=== PATIENT | female | born 1955 | race African-American/Black ===

== ENCOUNTER 2016-05-16 04:12 | Inpatient (IN) | payer OTHER ==
--- NOTE | ~2016-05-16 | ST ---
Unit #: [id number] #: [id number] Patient: NIGHAT NULL [id number] [facility]. [place] [address] [facility]. [place], [place] [address] [id number] I MR#: [id number] NAME: NIGHAT NULL : 1955 SEX: F STUDY DATE/TIME: 05/18/2016 UNIT: C3A PCU ROOM: [facility] STUDY DESCRIPTION: Lexiscan stress test Attending Physician: Edy Avendano M.D. Primary Care Physician: No Primary Care Physician CARDIOLOGY REPORT PROCEDURE PERFORMED EKG portion of a Lexiscan Cardiolite stress test. DISCUSSION Baseline EKG reveals sinus rhythm with a ventricular rate of 93 beats per minute. Right atrial enlargement noted. T wave inversion noted in the anterolateral leads questionably due to LV strain. Incomplete right bundle branch block noted. A total of 0.4 mg of Lexiscan was injected per protocol, followed by Cardiolite. There were no complaints of chest pain. There were no sustained arrhythmias noted, except there were some rare PVCs. There were no ST or T wave changes to suggest ischemia from baseline. The maximal heart rate was 126 beats per minute with a maximal blood pressure of 145/68 mmHg. The test was stopped due to protocol completion. IMPRESSION 1. Negative EKG portion of Lexiscan Cardiolite stress test. 2. There were no complaints of chest pain. 3. There were rare premature ventricular complexes noted. 4. There were no ST or T wave changes from baseline to suggest ischemia. 5. Please correlate with Cardiolite images. Dictated by... Carissa Mahoney APRN for Linnea Quintero/bryant TD: 05/18/2016 16:10 JOB #: [id number] CARDIOLOGY REPORT Page 1 of 1 X CARDIOLOGY REPORT
--- NOTE | ~2016-05-16 | CT16 ---
[facility] A Service of [place] [facility] RADIOLOGY TEXT RESULTS PATIENT: NIGHAT NULL LOCATION: [facility] 317-01 : [birth year] UNIT #: [id number] AGE: [address]: Edy Avendano MD SEX: F ORDER DR: [id number] [facility] [address] [facility]. [place], [place] [address] [id number] I MR#: [id number] Acc #: [id number] NAME: NIGHAT NULL : 1955 SEX: F STUDY DATE/TIME: 05/16/2016 17:32 UNIT: A [facility] ROOM: [facility] STUDY DESCRIPTION: CT Angio Chest for PE Attending Physician: Edy Avendano M.D. Ordering Physician: David Otto M.D. Primary Care Physician: Primary Care Physician No MEDICAL IMAGING REPORT This report is preliminary unless electronic signature is present EXAM CT angiogram chest with IV contrast, 05/16/2016 HISTORY Shortness of air for [address] exam was performed with one or more of the following radiation dose reduction techniques: automatic exposure control, adjustment of mA and/or kV according to patient size, and iterative reconstruction. FINDINGS IV contrast enhanced CT angiogram of the chest was performed with 3-D reconstructions. There is no evidence of pulmonary embolus. Exam sensitivity is partly limited by respiratory motion artifact. Moderately extensive atelectasis in the right middle lobe and mild atelectasis in the inferior lingula. Additional mild linear atelectasis in both posterior lower lobes. Mild emphysema in the upper lobes. There is a 6.0 mm pulmonary nodule in the lateral right lung apex. Unless there are older outside CTs documenting long-term stability, followup CT chest in 6-12 months would be recommended. Small pericardial effusion. No adenopathy. 2.6 cm lipoma in the left subscapularis muscle is incidentally noted. IMPRESSION 1. No pulmonary mass. 2. Moderate atelectasis in the right middle lobe and mild atelectasis in the inferior lingula and additional mild linear atelectasis in the inferior lower lobes. 3. No airspace infiltrates or effusions. 4. Mild emphysema in the bilateral upper lobes. 5. 6.0 mm pulmonary nodule in the lateral right upper lobe. Unless STS. [facility] A Service of [facility] RADIOLOGY TEXT RESULTS PATIENT: NIGHAT NULL LOCATION: [facility] 317-01 : [birth year] UNIT #: [id number] AGE: [address]: Edy Avendano MD SEX: F ORDER DR: there are older outside CTs to document long-term stability, followup chest CT in 6-12 months would be recommended. 6. 2.6 cm incidental lipoma in the left subscapularis muscle. STAT * RESULT Dictated by... Richardson Marley M.D. THIS IS AN ELECTRONICALLY VERIFIED REPORT Richardson Marley M.D. at 05/17/2016 12:23 PM Mirna TD: 05/17/2016 10:27 JOB #: [id number] MEDICAL IMAGING REPORT COPY
--- NOTE | ~2016-05-16 | DS ---
Unit #: [id number] #: [id number] Patient: NIGHAT NULL [id number] [address] [place], [place] [address] [id number] I MR#: [id number] NAME: NIGHAT NULL ROOM: 317 Age: 60 Sex: F Admission Date: 05/16/2016 : 1955 Discharge Date: 05/18/2016 Attending Physician: Edy Avendano M.D. Primary Care Physician: No Primary Care Physician DISCHARGE SUMMARY [employer] Dr. Madiha Puente. PROCEDURES 1. A 2D echocardiogram with Doppler which showed an ejection fraction of 55% to 60%, normal wall motion, moderate concentric LV hypertrophy, LV size normal, impaired relaxation, grade 1 diastolic dysfunction, moderately enlarged right ventricular cavity with moderately reduced RV function, moderate tricuspid regurgitation, RV systolic pressure of approximately 57 mmHg. 2. Cardiolite stress test which was essentially normal. 3. Ultrasound of the lower extremities for deep venous thrombosis: Negative. 4. Ultrasound of the abdomen for ascites which did not show any drainable fluid. HISTORY OF PRESENT ILLNESS The patient is a 60-year-old -[place] lady with a past medical history of hypertension, who presented to the emergency room with a chief complaint of bilateral lower extremity edema. She complains of about 100 pounds weight gain in the last one year. HOSPITAL COURSE On the initial evaluation, she was noted to have edema of lower extremities and she was started on diuretics. Ultrasound of the lower extremities was negative for DVT. Cardiology was consulted. We did check a lipid panel. The LDL came back 77. Her hemoglobin A1c was 6.2. We started her on Lipitor for hyperlipidemia. I did explain to her about the possible side effects of Lipitor including rhabdomyolysis and elevated bilirubin. She understands and agreed to be on that. Cardiology was following the patient. They titrated her cardiac medications including starting her on beta ed, diuretics. Slowly, her edema is improving. She had a Cardiolite stress test done which was negative. We counseled her on every hospitalization visit to quit smoking. She will be discharged home in a stable condition. Requested her to follow with dermatology for a skin rash she had on her left upper extremity. She has an appointment on the of this month for that. I requested her to follow with cardiology in one to two weeks. I requested her to take low-salt diet and monitor her fluid intake, restrict her fluids to 1800 mL per day. All the discharge instructions explained in detail to the patient. PHYSICAL EXAMINATION On the day of the discharge, her physical examination: Unit #: [id number] #: [id number] Patient: NIGHAT NULL VITAL SIGNS: Temperature 98.9, pulse rate 95, respiratory rate 20, blood pressure 142/84. GENERAL: The patient is alert and oriented x3, lying in the bed in no acute distress. HEENT: Normocephalic and atraumatic. No icterus. PERRLA. Extraocular muscles intact. NECK: Supple. No JVD. HEART: S1, S2. Regular rate and rhythm. CHEST: Bilateral equal air entry. Clear to auscultation. ABDOMEN: Soft, nontender. EXTREMITIES: Mild edema present. DISCHARGE MEDICATIONS 1. Metoprolol 25 mg twice a day. 2. Lasix 40 mg p.o. twice a day. 3. Lipitor 20 mg at bedtime. 4. Cozaar 25 mg daily. 5. Aspirin 81 mg daily. 6. Spironolactone 12.5 mg daily. FOLLOWUP She is instructed to follow with cardiology, primary care, and dermatology as an outpatient. Total time spent in her care, 35 minutes. Dictated by.Bob Avendano M.D. Eliana TD: 05/18/2016 17:42 JOB #: [id number] DISCHARGE SUMMARY Page 1 of 1 X X DISCHARGE SUMMARY
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
--- NOTE | ~2016-05-16 | US8 ---
[facility] A Service of [facility] RADIOLOGY TEXT RESULTS PATIENT: NIGHAT NULL LOCATION: [facility] 317- : 53 UNIT #: [id number] AGE: [address]: Edy Avendano MD SEX: F ORDER DR: [id number] [facility] [address] [facility]. [place], [place] [address] [id number] I MR#: [id number] #: [id number] NAME: NIGHAT NULL : 1955 SEX: F STUDY DATE/TIME: 05/18/2016 9:49 UNIT: [address] ROOM: [facility] STUDY DESCRIPTION: US Abdominal Wall/Quadrant Attending Physician: Edy Avendano M.D. Ordering Physician: Dominic Britt M.D. Primary Care Physician: Primary Care Physician No MEDICAL IMAGING REPORT This report is preliminary unless electronic signature is present EXAM Wall quadrant ultrasound, 05/18/2016 INDICATIONS Abdominal discomfort and fullness for a few months. Assessment of ascites in a 60-year-old female. TECHNIQUE Sonographic imaging of the abdomen was performed with a wall quadrant approach to assess for the presence or absence of ascites. No comparisons. FINDINGS Examination demonstrates no ascites amenable to percutaneous drainage or aspiration at this time. Incidentally imaged solid organs negative. IMPRESSION 1. No ascites amenable to percutaneous aspiration. Dictated by... Faisal Torres M.D. THIS IS AN ELECTRONICALLY VERIFIED REPORT Faisal Torres M.D. at 05/19/2016 7:34 AM ABHIJIT/sandra TD: 05/18/2016 22:50 JOB #: [id number] MEDICAL IMAGING REPORT Page 1 of 1 COPY
--- NOTE | ~2016-05-16 | ST ---
Unit #: [id number] #: [id number] Patient: NIGHAT NULL [id number] [address] [address] [id number] I MR#: [id number] NAME: NIGHAT NULL : 1955 SEX: F STUDY DATE/TIME: 05/18/2016 UNIT: C3A PCU ROOM: [address] [place] [address] DESCRIPTION: Stress tests Attending Physician: Edy Avendano M.D. STRESS TEST DESCRIPTION OF PROCEDURE Using Technetium-99m label Cardiolite Persantine stress test images were obtained. Multiple SPECT images were obtained in various views including horizontal and vertical long axis and short axis views of the left ventricle. Images were obtained by gait SPECT method. The patient was administered 11.86 mCi of Cardiolite at rest. The patient was administered 35.9 mCi of Cardiolite after Lexiscan infusion was completed. On the stress images, there was normal perfusion noted. The rest images showed normal perfusion. Comparing resting of stress images, there was no stress-induced ischemia noted. The left ventricular ejection fraction is calculated to be 51%. There was no focal wall motion abnormality seen. The left ventricular size is small. CONCLUSION 1. No obvious stress-induced ischemia noted. 2. The left ventricular ejection fraction is calculated to be 51%. 3. There was no focal wall motion abnormality seen. 4. The left ventricular size is small. 5. Normal Lexiscan Cardiolite stress test. 6. Technically limited study due to the patient's body habitus. Clinical correlation is requested. Dictated by... Linnea Quintero/cris TD: 05/19/2016 10:52 JOB #: [id number] STRESS TEST Page 1 of 1 X Madiha Puente MD <ELECTRONICALLY SIGNED> 09/18/16 1429 CARDIOLOGY REPORT
--- NOTE | ~2016-05-16 | EKG ---
PATIENT: NIGHAT NULL UNIT #: [id number] Ventricular Rate: 101 BPM Atrial Rate: 101 BPM P-R Interval: 124 ms QRS Duration: 114 ms Q-T Interval: 390 ms QTC Calculation(Bezet): 505 ms P [place]: 71 degrees Calculated R [place]: 76 degrees Calculated T [place]: -39 degrees Diagnosis Line: Sinus tachycardia Diagnosis Line: Biatrial enlargement Diagnosis Line: Incomplete right bundle branch block Diagnosis Line: ST and T wave abnormality, consider inferior Diagnosis Line: ischemia Diagnosis Line: Abnormal ECG Diagnosis Line: When compared with ECG of 06-JAN-2013 03:29, Diagnosis Line: Criteria for Inferior infarct are no longer Diagnosis Line: Present Diagnosis Line: Non-specific change in ST segment in Inferior Diagnosis Line: leads Diagnosis Line: T wave inversion now evident in Inferior leads Diagnosis Line: T wave inversion more evident in Anterolateral Diagnosis Line: leads Diagnosis Line: Confirmed by DANIELA BLUM MD ([id number]) on Diagnosis Line: 05/16/2016 8:03:07 PM INTERPRETING MD: JAMIE
--- NOTE | ~2016-05-16 | US84 ---
[id number] [facility] [address] [facility]. [place], [place] [address] [id number] I MR#: [id number] Acc #: [id number] NAME: NIGHAT NULL : 1955 SEX: F STUDY DATE/TIME: 05/17/2016 14:39 UNIT: C3A PCU ROOM: 317 STUDY DESCRIPTION: US LE Veins Complete Clayton Stdy Attending Physician: Edy Avendano M.D. Ordering Physician: Edy Avendano M.D. Primary Care Physician: Primary Care Physician No MEDICAL IMAGING REPORT This report is preliminary unless electronic signature is present EXAM Bilateral leg vein Doppler, 05/17 INDICATIONS Bilateral leg swelling over the last 2 months. TECHNIQUE Venous ultrasound examination of both lower extremities was performed using grayscale, spectral Doppler and color flow Doppler imaging. FINDINGS The examination is negative. There is no evidence of deep venous thrombus from the groin to the lower calf bilaterally. Visualized greater saphenous veins are also patent. IMPRESSION Negative examination. No evidence of lower extremity deep venous thrombosis. Dictated by... Joel Jacques Jr., M.D. THIS IS AN ELECTRONICALLY VERIFIED REPORT Joel Jacques Jr., M.D. at 05/17/2016 10:31 PM FAIZAN/sandra TD: 05/17/2016 20:49 JOB #: [id number] MEDICAL IMAGING REPORT COPY
--- NOTE | ~2016-05-16 | HP ---
Unit #: [id number] #: [id number] Patient: NIGHAT NULL [id number] [address] [place], [place] [address] [id number] I MR#: [id number] NAME: NIGHAT NULL ROOM: 317 Age: 60 Sex: F Admission Date: 05/16/2016 : 1955 Attending Physician: Dominic Britt M.D. Primary Care Physician: Primary Care Physician No HISTORY AND PHYSICAL CHIEF COMPLAINT Edema of both the legs. HISTORY OF PRESENT ILLNESS The patient is a 60-year-old lady with a past medical history of hypertension, who presented to the emergency room with the chief complaint of edema of both legs which is becoming more worse in the last one week. She denies any shortness of breath. She denies any change in her medications. She complains of weight gain of 100 pounds almost in the last one year. Denies any history of congestive heart failure. Denies any history of coronary artery disease in the past. In the emergency room, she was started on Lasix 40 mg IV b.i.d. and she mentions her swelling has improved a little bit. She denies any chest pain, palpitations, denies any shortness of breath, denies any paroxysmal nocturnal dyspnea, denies any dyspnea on exertion. She mentions she gets chest tightness when she lifts something heavy. She denies having any abdominal pain, diarrhea, or dysuria. PAST MEDICAL HISTORY History of hypertension. HOME MEDICATIONS Include losartan 25 mg p.o. daily. ALLERGIES No known drug allergies. SOCIAL HISTORY Smokes a pack in three days. Denies any alcohol or illicit drug use. FAMILY HISTORY She mentions her sister is obese. Does not know any medical problems which run in her family. REVIEW OF SYSTEMS A complete review of systems is done and negative except for what is mentioned in the HPI. PHYSICAL EXAMINATION VITAL SIGNS: Temperature 98.4, pulse 112, respiratory rate 20, blood pressure 162/96. GENERAL: Patient is alert and oriented x3. Obese. HEENT: Normocephalic, atraumatic. No icterus. PERRLA. Extraocular Unit #: [id number] #: [id number] Patient: NIGHAT NULL muscles are intact. NECK: Supple, no JVD. LUNGS: Breaths sounds equal entry. Clear to auscultation. HEART: S1, S2. Tachycardic. ABDOMEN: Obese, soft, nontender. EXTREMITIES: 2+ edema. DIAGNOSTIC STUDIES LABORATORY: Glucose 131, BUN 12, creatinine 0.8, sodium 141, potassium 3.6, bicarb 35, calcium 8.4, albumin 3.3, AST 35, ALT 38. BNP 360. WBC 6.7, hemoglobin 14.3, platelet count 228, MCV 100.7. ASSESSMENT AND PLAN 1. Edema of both legs with elevated BNP. Concern for possible systolic heart failure acute versus deep venous thrombosis. Will check a 2D echo with Doppler. Will gently diurese her with Lasix. She is already on ARB with losartan. Will go from Cardiology input. Will also try to start her on a low dose beta ed and monitor. 2. Hypertension. Blood pressure is poorly controlled. She is on losartan at home and she is on Lasix. Will add a beta ed and monitor. 3. Skin rash. She has a chronic skin rash on her left upper extremity which is present for almost 2 years. She has an appointment with Dermatology next week as an outpatient. Will request her to follow with them. 4. Smoking. Counseled her to quit smoking. 5. Morbid obesity. Will check a lipid panel, TSH, A1c. Possibly needs an outpatient sleep study. 6. DVT precautions. 7. Further recommendations per hospital course. Dictated by Edy Avendano M.D. ISAIAH/filemon TD: 05/16/2016 12:57 JOB #: [id number] HISTORY AND PHYSICAL X X HISTORY AND PHYSICAL
--- NOTE | ~2016-05-16 | EKG ---
PATIENT: NIGHAT NULL UNIT #: [id number] Ventricular Rate: 108 BPM Atrial Rate: 108 BPM P-R Interval: 124 ms QRS Duration: 112 ms Q-T Interval: 384 ms QTC Calculation(Bezet): 514 ms P [place]: 66 degrees Calculated R [place]: 73 degrees Calculated T [place]: -39 degrees Diagnosis Line: Sinus tachycardia Diagnosis Line: Biatrial enlargement Diagnosis Line: Incomplete right bundle branch block Diagnosis Line: ST and T wave abnormality, consider inferior Diagnosis Line: ischemia Diagnosis Line: ST and T wave abnormality, consider anterolateral Diagnosis Line: ischemia Diagnosis Line: Abnormal ECG Diagnosis Line: When compared with ECG of 16-MAY-2016 04:00, Diagnosis Line: No significant change was found Diagnosis Line: Confirmed by XU SOTO MD ([id number]) on 05/18/2016 Diagnosis Line: 4:44:14 AM INTERPRETING MD: BRITTANY PULLIAM
--- NOTE | ~2016-05-16 | CR72 ---
[facility] A Service of [facility] RADIOLOGY TEXT RESULTS PATIENT: NIGHAT NULL LOCATION: [facility] 317- : 53 UNIT #: [id number] AGE: [address]: Edy Avendano MD SEX: F ORDER DR: [id number] [facility] [address]. [place], [place] [address] [id number] I MR#: [id number] Acc #: [id number] NAME: NIGHAT NULL : 1955 SEX: F STUDY DATE/TIME: 05/16/2016 4:04 UNIT: [address] ROOM: [facility] STUDY DESCRIPTION: CR Chest Single View Portable Attending Physician: Dominic Britt M.D. Ordering Physician: Herson Ga M.D. Primary Care Physician: Primary Care Physician No MEDICAL IMAGING REPORT This report is preliminary unless electronic signature is present EXAM AP portable chest, 05/16/2016 HISTORY 60-year-old female in the ED complaining of 1-week history of shortness of air and weakness. Lower extremity edema. Decreased oxygen saturation. TECHNIQUE AP portable upright chest x-ray. FINDINGS Mild cardiomegaly. Central pulmonary artery enlargement. Pulmonary venous vascularity is within normal limits. Elevation of the right hemidiaphragm with mild atelectasis or infiltrate in the adjacent right lung base. The lungs otherwise clear. No visible airspace consolidation or pleural effusion. IMPRESSION 1. Mild cardiomegaly. Central pulmonary artery enlargement. 2. Elevation of the right hemidiaphragm with mild infiltrate or atelectasis in the right lung base. Dictated by... Marck Thompson M.D. THIS IS AN ELECTRONICALLY VERIFIED REPORT Marck Thompson M.D. at 05/17/2016 9:54 PM Jeremy TD: 05/17/2016 08:18 JOB #: [id number] MEDICAL IMAGING REPORT [facility] A Service of [facility] RADIOLOGY TEXT RESULTS PATIENT: NIGHAT NULL LOCATION: [facility] 317-01 : 53 UNIT #: [id number] AGE: [address]: Edy Avendano MD SEX: F ORDER DR: COPY
[~2016-05-16 04:12] MED LIST: FLEXERIL10 M1 PO; FLEXERIL10 MG PO; LOSARTAN POTASS25 MG PO; LOTRISONE CREAM45 GM TOP; NORCO 5/325 TAB1 TAB PO; PREDNISONE10 MG/DOSE PO; PREDNISONE50 MG PO
[2016-05-16 04:25] LABS: BASOPHIL# 0.1 X10e3 (0-0.3); BASOPHIL% 1.2 % (0-2.5); EOSINOPHIL# 0.1 X10e3 (0-0.7); EOSINOPHIL% 1.5 % (0.0-7.0); HEMATOCRIT 45.3 % (35.0-45.0); HEMOGLOBIN 14.3 gm/dL (12.0-16.0); LYMPHOCYTE# 1.5 X10e3 (1.0-3.5); LYMPHOCYTE% 22.1 % (17.0-45.0); MEAN CELL VOLUME 100.7 FL (83-96); MEAN CORPUSCULAR HEMOGLOBIN 31.8 PG (28-34); MEAN CORPUSCULAR HGB CONC 31.6 g/dL (30-36); MEAN PLATELET VOLUME 8.3 FL (6.5-11.5); MONOCYTE# 0.3 X10e3 (0-1.0); MONOCYTE% 5.1 % (3.0-12.0); NEUTROPHIL# 4.7 X10e3 (1.5-7.1); NEUTROPHIL% 70.1 % (40-75); PLATELET COUNT 228 X10e3 (140-420); RED CELL DISTRIBUTION WIDTH 15.9 % (11.0-15.5); WHITE BLOOD COUNT 6.7 X10e3 (4.0-10.5)
[2016-05-16 04:26] LABS: DIFF IND NO
[2016-05-16 04:44] LABS: ALBUMIN SERUM 3.3 g/dL (3.5-5.0); ALKALINE PHOSPHATASE 72 U/L (32-92); ALT (SGPT) 38 U/L (10-40); AST (SGOT) 35 U/L (10-42); BILIRUBIN, DIRECT <0.1 mg/dL (0.0-0.2); BILIRUBIN,INDIRECT 0.3 mg/dL (0.0-0.9); BILIRUBIN,TOTAL 0.4 mg/dL (0.2-2.0); BLOOD UREA NITROGEN 12 mg/dL (9-23); CALCIUM SERUM 8.4 mg/dL (8.4-10.2); CARBON DIOXIDE 35 mmol/L (22-31); CHLORIDE 101 mmol/L (100-111); CREATININE SERUM 0.8 mg/dL (0.6-1.4); GLOM FILT RATE Estimated ABOVE60 mL/min (>60); GLUCOSE FASTING 131 mg/dL (70-110); POTASSIUM 3.6 mmol/L (3.5-5.1); PROTEIN TOTAL SERUM 6.6 g/dL (6.0-8.3); SODIUM 141 mmol/L (135-145)
[2016-05-16 05:03] LABS: POC - CKMB 2.4 ng/mL (0.0-7.9); POC - TROPONIN <0.05 ng/mL (<=0.05)
[2016-05-16 17:22] LABS: URINE SOURCE CLEAN CATCH
[2016-05-16 17:28] LABS: URINE APPEARANCE CLEAR; URINE BILIRUBIN NEG (NEG); URINE BLOOD NEG (NEG); URINE COLOR YELLOW; URINE GLUCOSE NEG (NEG); URINE KETONE NEG (NEG); URINE LEUKOCYTE ESTERASE TRACE (NEG); URINE NITRATE NEG (NEG); URINE PROTEIN NEG (NEG); URINE SPECIFIC GRAVITY 1.011 (1.003-1.035); URINE UROBILINOGEN 0.2 MG/DL (NEG)
[2016-05-16 17:31] LABS: URBCS1 AUWI 0-2 /[HPF] (0-2); URINE BACTERIA AUWI NEG (NEGATIVE); URINE SQUAMOUS EPITHELIAL CELL NONE SEEN /[HPF]
[2016-05-16 19:23] LABS: %MB 6.6 % (0.0-4.0); MB 4.3 ng/ml
[2016-05-17 01:52] LABS: %MB 4.9 % (0.0-4.0); MB 3.6 ng/ml
[2016-05-17 05:57] LABS: HEMATOCRIT 48.2 % (35.0-45.0); HEMOGLOBIN 15.2 gm/dL (12.0-16.0); MEAN CELL VOLUME 100.5 FL (83-96); MEAN CORPUSCULAR HEMOGLOBIN 31.6 PG (28-34); MEAN CORPUSCULAR HGB CONC 31.4 g/dL (30-36); MEAN PLATELET VOLUME 8.9 FL (6.5-11.5); RED BLOOD COUNT 4.8 X10e (3.90-5.30); RED CELL DISTRIBUTION WIDTH 15.9 % (11.0-15.5); WHITE BLOOD COUNT 6.2 X10e3 (4.0-10.5)
[2016-05-17 06:33] LABS: BLOOD UREA NITROGEN 12 mg/dL (9-23); BUN/CREATININE RATIO 17.14; CALCIUM SERUM 8.3 mg/dL (8.4-10.2); CARBON DIOXIDE 37 mmol/L (22-31); CHLORIDE 96 mmol/L (100-111); CREATININE SERUM 0.7 mg/dL (0.6-1.4); GLOM FILT RATE Estimated ABOVE60 mL/min (>60); GLUCOSE FASTING 98 mg/dL (70-110); LIPASE 19 U/L (22-51); MAGNESIUM 1.9 mg/dL (1.6-3.0); POTASSIUM 3.9 mmol/L (3.5-5.1); SODIUM 139 mmol/L (135-145)
[2016-05-17 09:38] LABS: CHOLESTEROL 137 mg/dL (0-200); HDL CHOLESTEROL 45 mg/dL (35-95); LDL CHOLESTEROL 77 mg/dL (-130); LDL/HDL RATIO 2 RATIO (0-4); TRIGLYCERIDES 74 mg/dL (10-160)
[2016-05-18 07:03] LABS: HEMATOCRIT 46.4 % (35.0-45.0); HEMOGLOBIN 14.7 gm/dL (12.0-16.0); MEAN CELL VOLUME 99.3 FL (83-96); MEAN CORPUSCULAR HEMOGLOBIN 31.4 PG (28-34); MEAN CORPUSCULAR HGB CONC 31.6 g/dL (30-36); MEAN PLATELET VOLUME 8.6 FL (6.5-11.5); RED BLOOD COUNT 4.67 X10e (3.90-5.30); RED CELL DISTRIBUTION WIDTH 15.6 % (11.0-15.5); WHITE BLOOD COUNT 5.9 X10e3 (4.0-10.5)
[2016-05-18 07:34] LABS: BLOOD UREA NITROGEN 15 mg/dL (9-23); BUN/CREATININE RATIO 18.75; CALCIUM SERUM 8.9 mg/dL (8.4-10.2); CARBON DIOXIDE 41 mmol/L (22-31); CHLORIDE 93 mmol/L (100-111); CREATININE SERUM 0.8 mg/dL (0.6-1.4); GLOM FILT RATE Estimated ABOVE60 mL/min (>60); GLUCOSE FASTING 104 mg/dL (70-110); POTASSIUM 3.7 mmol/L (3.5-5.1); SODIUM 142 mmol/L (135-145)
[2016-05-18] MEDS ORDERED: LIPITOR PO (16:59)
[2016-05-18] MEDS ORDERED: METOPROLOL TART25 MG PO (16:59)
[2016-05-18] MEDS ORDERED: ASPIRIN81 M2 PO (17:00)
[2016-05-18] MEDS ORDERED: LASIX PO (17:01)
[2016-05-18] MEDS ORDERED: ALDACTONE25 MG PO (17:01)
[2016-05-26] MEDS ORDERED: LASIX PO (22:27)
[2016-05-26] MEDS ORDERED: ALDACTONE25 MG PO (22:27)
[2016-05-26] MEDS ORDERED: LIPITOR20 MG PO (22:28)
[2016-05-26] MEDS ORDERED: COZAAR25 MG PO (22:28)
[2016-05-26] MEDS ORDERED: METOPROLOL TAR25 MG PO (22:28)
[2016-05-26] MEDS ORDERED: ASPIRIN EC81 M1 PO (22:28)
== END 2016-05-18 18:02 | disposition home or self-care (01) | DRG 293 ==
LOC: CED 04:12 → CEDOF 05:09 → C3A PCU 07:49
PROVIDERS: Emergency Medicine; Internal Medicine; Nurse Practitioner Family
PROC: B246YZZ Ultrasonography of Right and Left Heart using Other Contrast (ICD-10-PCS; principal; 2016-05-16)
PROC: 05H333Z Insertion of Infusion Device into Right Innominate Vein, Percutaneous Approach (ICD-10-PCS; 2016-05-16)
PROC: B54MZZA Ultrasonography of Right Upper Extremity Veins, Guidance (ICD-10-PCS; 2016-05-16)
DX: I11.0 Hypertensive heart disease with heart failure (principal); I27.2 Other secondary pulmonary hypertension; I50.31 Acute diastolic (congestive) heart failure; E78.5 Hyperlipidemia, unspecified; F17.210 Nicotine dependence, cigarettes, uncomplicated; R21 Rash and other nonspecific skin eruption; E66.01 Morbid (severe) obesity due to excess calories; Z68.34 Body mass index [BMI] 34.0-34.9, adult; R00.0 Tachycardia, unspecified; Z71.6 Tobacco abuse counseling; Z71.3 Dietary counseling and surveillance
CPT/HCPCS: 36415; 71010; 71275; 76705; 78452; 80048; 80061; 80076; 81003; 82550; 82553; 83036; 83690; 83735; 83880; 84443; 84484; 85025; 85027; 93005; 93017; 93306; 93970; 96374; 99285; A9500; J1650; J1940; J2785; Q9967

== ENCOUNTER 2016-05-26 23:29 | Inpatient (IN) | payer OTHER ==
--- NOTE | ~2016-05-26 | EKG ---
PATIENT: NIGHAT NULL UNIT #: [id number] Ventricular Rate: 95 BPM Atrial Rate: 95 BPM P-R Interval: 114 ms QRS Duration: 110 ms Q-T Interval: 354 ms QTC Calculation(Bezet): 444 ms P [place]: 72 degrees Calculated R [place]: 73 degrees Calculated T [place]: 11 degrees Diagnosis Line: Normal sinus rhythm Diagnosis Line: Biatrial enlargement Diagnosis Line: Incomplete right bundle branch block Diagnosis Line: Abnormal ECG Diagnosis Line: When compared with ECG of 26-MAY-2016 21:36, Diagnosis Line: (unconfirmed) Diagnosis Line: No significant change was found Diagnosis Line: Confirmed by MEÑO DIEGO MD ([id number]) on 05/28/2016 Diagnosis Line: 4:36:38 PM INTERPRETING MD: BRANDIE PULLIAM
--- NOTE | ~2016-05-26 | EKG ---
PATIENT: NIGHAT NULL UNIT #: [id number] Ventricular Rate: 110 BPM Atrial Rate: 110 BPM P-R Interval: 120 ms QRS Duration: 110 ms Q-T Interval: 340 ms QTC Calculation(Bezet): 460 ms P [place]: 70 degrees Calculated R [place]: 78 degrees Calculated T [place]: -4 degrees Diagnosis Line: Sinus tachycardia Diagnosis Line: Biatrial enlargement Diagnosis Line: Incomplete right bundle branch block Diagnosis Line: ST and T wave abnormality, consider inferior Diagnosis Line: ischemia Diagnosis Line: ST and T wave abnormality, consider anterior Diagnosis Line: ischemia Diagnosis Line: Abnormal ECG Diagnosis Line: When compared with ECG of 17-MAY-2016 06:48, Diagnosis Line: ST now depressed in Inferior leads Diagnosis Line: Confirmed by MEÑO DIEGO MD ([id number]) on 05/28/2016 Diagnosis Line: 2:15:09 PM INTERPRETING MD: BRANDIE PULLIAM
--- NOTE | ~2016-05-26 | CT16 ---
[facility] A Service of [facility] RADIOLOGY TEXT RESULTS PATIENT: NIGHAT NULL LOCATION: [facility] 317-01 : 53 UNIT #: [id number] AGE: [address]: Rosa Caraballo MD SEX: F ORDER DR: [id number] [facility] [address]. [place], [place] [address] [id number] I MR#: [id number] Acc #: [id number] NAME: NIGHAT NULL : 1955 SEX: F STUDY DATE/TIME: 05/27/2016 0:06 UNIT: CEDOF ROOM: 50394 STUDY DESCRIPTION: CT Angio Chest for PE Attending Physician: Rosa Caraballo M.D. Ordering Physician: Quan Ma M.D. Primary Care Physician: Primary Care Physician No MEDICAL IMAGING REPORT This report is preliminary unless electronic signature is present EXAM Chest CT PE protocol with contrast, 05/27/2016 INDICATION Short of air, chest pain for a week, cough and congestion, elevated D-dimer. Hypertension. TECHNIQUE Contrast enhanced CT of the chest PE protocol was performed with 3-D reformats. This CT exam was performed with one or more of the following radiation dose reduction techniques: automatic exposure control, adjustment of mA and/or kV according to patient size, and iterative reconstruction. COMPARISON 05/16/[address] CHEST: IV bolus suboptimal. Aorta demonstrates no aneurysm or dissection. There is no evidence of acute pulmonary embolus in the main left or right central pulmonary arteries. Beyond the first order branches the pulmonary arteries are not well opacified or assessed and the presence or absence of acute pulmonary embolus cannot be ascertained. There is particularly limited evaluation of the lower lobe pulmonary dural systems bilaterally. Included thyroid unremarkable. The heart is enlarged. There is a trace amount of pericardial fluid/pericardial thickening. No axillary adenopathy. Mildly prominent mediastinal and hilar nodes are nonspecific and favored to be reactive but should be correlated clinically. Included upper abdomen demonstrates probable hyperplasia of the adrenal glands bilaterally. Gallbladder is contracted. There is no acute finding in the upper abdomen. [facility] A Service of [facility] RADIOLOGY TEXT RESULTS PATIENT: NIGHAT NULL LOCATION: [facility] 317-01 : 53 UNIT #: [id number] AGE: [address]: Rosa Caraballo MD SEX: F ORDER DR: The lungs demonstrate emphysematous change. There is no pleural effusion. There is biapical scarring. There is a 6 mm noncalcified nodule in the subpleural right upper lobe that is unchanged. There is significant atelectasis of the right middle lobe that is unchanged. No pneumothorax. No distinct new evidence of pneumonia. No suspicious bone lesion. IMPRESSION 1. Suboptimal bolus timing. No aortic aneurysm or dissection. No pulmonary embolus in the main left or right central pulmonary arteries identified. Beyond that level the pulmonary arteries are not optimally opacified to assess for the presence or absence of filling defects. 2. Cardiomegaly and a trace amount of pericardial fluid. 3. Emphysema with a 6 mm noncalcified upper lobe nodule in the right, unchanged. Suggest followup CT in 6-12 months for reassessment of stability. 4. Moderate atelectasis of the right middle lobe. More mild atelectatic change in the lower lobe on the left and lingula and right lower lobe. No new effusion or evidence of pneumonia. 5. Upper abdomen demonstrates no acute finding. Dictated by... Faisal Torres M.D. THIS IS AN ELECTRONICALLY VERIFIED REPORT Faisal Torres M.D. at 05/27/2016 6:28 AM ABHIJIT/madison TD: 05/27/2016 02:53 JOB #: [id number] MEDICAL IMAGING REPORT Page 1 of 1 COPY
--- NOTE | ~2016-05-26 | US84 ---
[id number] [facility] [address] [place], [place] [address] [id number] I MR#: [id number] Acc #: [id number] NAME: NIGHAT NULL : 1955 SEX: F STUDY DATE/TIME: 05/27/2016 16:44 UNIT: C3A PCU ROOM: 317 STUDY DESCRIPTION: US LE Veins Complete [place] Stdy Attending Physician: Isha Flowers M.D. Ordering Physician: Rosa Caraballo M.D. Primary Care Physician: No Primary Care Physician MEDICAL IMAGING REPORT This report is preliminary unless electronic signature is present EXAM Bilateral lower extremity venous duplex doppler ultrasound. DATE OF EXAM 05/27/2016 CLINICAL HISTORY Bilateral lower extremity pain and chest pressure for 2 days. History of hypertension. FINDINGS RIGHT LOWER EXTREMITY: The posterior tibial, peroneal and anterior tibial veins are not well seen, but there is color flow in the vicinity of these vessels. The right common femoral, greater saphenous, superficial femoral, proximal deep femoral and popliteal veins are fully compressible with normal color-flow and waveform. LEFT LOWER EXTREMITY: The left anterior tibial, posterior tibial and peroneal veins are not well seen but color flow is demonstrated in the region of these vessels. The left common femoral, superficial femoral, greater saphenous, proximal deep femoral and popliteal veins are fully compressible with normal internal color-flow and waveform. IMPRESSION 1. The bilateral anterior tibial, posterior tibial and peroneal veins are not well seen. These vessels appear to demonstrate internal color flow but this cannot be stated definitively. Clinical correlation recommended. 2. Otherwise no evidence of deep venous thrombosis or superficial venous thrombosis is seen in either lower extremity. Dictated by... Nikhil London M.D. THIS IS AN ELECTRONICALLY VERIFIED REPORT Nikhil London M.D. at 06/01/2016 9:44 AM LAISHA/piedad TD: 05/27/2016 20:26 JOB #: [id number] MEDICAL IMAGING REPORT Page 1 of 1 COPY
--- NOTE | ~2016-05-26 | CR72 ---
[facility] A Service of [facility] RADIOLOGY TEXT RESULTS PATIENT: NIGHAT NULL LOCATION: [facility] 317-01 : 53 UNIT #: [id number] AGE: [address]: Isha Flowers MD SEX: F ORDER DR: [id number] [facility] [address]. [place], [place] [address] [id number] E MR#: [id number] Acc #: [id number] NAME: NIGHAT NULL : 1955 SEX: F STUDY DATE/TIME: 05/26/2016 21:42 UNIT: ASHISH ROOM: STUDY DESCRIPTION: CR Chest Single View Portable Attending Physician: Quan Ma M.D. Ordering Physician: Quan Ma M.D. Primary Care Physician: No Primary Care Physician MEDICAL IMAGING REPORT This report is preliminary unless electronic signature is present EXAM Portable chest. DATE OF EXAM 05/26/2016 HISTORY Chest pain for 3 days. FINDINGS Mild cardiac enlargement, and mild vascular congestion. Mild patchy bibasilar atelectasis, corresponding to findings on chest x-ray and chest CT 05/16/2016. No new infiltrates. Mild pleural thickening in the lung apices. IMPRESSION 1. No change compared to 05/16/2016. 2. Persistent mild subsegmental bibasilar atelectasis. 3. Mild cardiac enlargement is also unchanged. Dictated by... Richardson Marley M.D. THIS IS AN ELECTRONICALLY VERIFIED REPORT Richardson Marley M.D. at 05/27/2016 4:36 PM DFL/piedad TD: 05/26/2016 23:35 JOB #: [id number] MEDICAL IMAGING REPORT [facility] A Service [facility] RADIOLOGY TEXT RESULTS PATIENT: NIGHAT NULL LOCATION: [facility] 317-01 : 53 UNIT #: [id number] AGE: [address]: Isha Flowers MD SEX: F ORDER DR: Page 1 of 1 COPY
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
--- NOTE | ~2016-05-26 | EKG ---
PATIENT: NIGHAT NULL UNIT #: [id number] Ventricular Rate: 96 BPM Atrial Rate: 96 BPM P-R Interval: 118 ms QRS Duration: 98 ms Q-T Interval: 362 ms QTC Calculation(Bezet): 457 ms P [place]: 63 degrees Calculated R [place]: 46 degrees Calculated T [place]: 4 degrees Diagnosis Line: Normal sinus rhythm Diagnosis Line: Biatrial enlargement Diagnosis Line: Incomplete right bundle branch block Diagnosis Line: T wave abnormality, consider anterior ischemia Diagnosis Line: Abnormal ECG Diagnosis Line: When compared with ECG of 27-MAY-2016 15:53, Diagnosis Line: T wave inversion more evident in Anterior leads Diagnosis Line: Confirmed by XU SOTO MD ([id number]) on 06/01/2016 Diagnosis Line: 11:11:01 PM INTERPRETING MD: BRITTANY PULLIAM
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
[2016-05-26 22:22] LABS: BASOPHIL% 1.3 % (0-2.5); HEMATOCRIT 45.8 % (35.0-45.0); HEMOGLOBIN 14.6 gm/dL (12.0-16.0); LYMPHOCYTE# 0.7 X10e3 (1.0-3.5); LYMPHOCYTE% 26.2 % (17.0-45.0); MEAN CELL VOLUME 98.7 FL (83-96); MEAN CORPUSCULAR HEMOGLOBIN 31.4 PG (28-34); MEAN CORPUSCULAR HGB CONC 31.8 g/dL (30-36); MEAN PLATELET VOLUME 8.9 FL (6.5-11.5); MONOCYTE# 0.4 X10e3 (0-1.0); MONOCYTE% 14.1 % (3.0-12.0); NEUTROPHIL# 1.5 X10e3 (1.5-7.1); NEUTROPHIL% 57.4 % (40-75); PLATELET COUNT 164 X10e3 (140-420); RED BLOOD COUNT 4.64 X10e (3.90-5.30); RED CELL DISTRIBUTION WIDTH 15.1 % (11.0-15.5); WHITE BLOOD COUNT 2.7 X10e3 (4.0-10.5)
[2016-05-26 22:24] LABS: DIFF IND YES
[2016-05-26 22:29] LABS: POC - CKMB 1.4 ng/mL (0.0-7.9); POC - TROPONIN 0.06 ng/mL (<=0.05)
[2016-05-26 22:33] LABS: PARTIAL THROMBOPLASTIN TIME 25.7 SECONDS (23.5-31.3); PROTHROMBIN TIME (PATIENT) 10.3 SECONDS (9.6-11.5)
[2016-05-26 23:18] LABS: ALBUMIN SERUM 3.6 g/dL (3.5-5.0); BILIRUBIN, DIRECT 0.1 mg/dL (0.0-0.2); BILIRUBIN,INDIRECT 0.5 mg/dL (0.0-0.9); BILIRUBIN,TOTAL 0.6 mg/dL (0.2-2.0); BUN/CREATININE RATIO 17.5; CALCIUM SERUM 8.7 mg/dL (8.4-10.2); CREATININE SERUM 1.2 mg/dL (0.6-1.4); GLOM FILT RATE Estimated 56.1 mL/min (>60); POTASSIUM 3.6 mmol/L (3.5-5.1); PROTEIN TOTAL SERUM 7.2 g/dL (6.0-8.3)
[2016-05-26 23:21] LABS: PLATELET ESTIMATE DECREASED (NORMAL); RBC NORMAL YES
[~2016-05-26 23:29] MED LIST changes: +ALDACTONE25 MG PO; +ASPIRIN EC81 M1 PO; +ASPIRIN81 M2 PO; +COZAAR25 MG PO; +LASIX PO; +LIPITOR PO; +LIPITOR20 MG PO; +METOPROLOL TAR25 MG PO; +METOPROLOL TART25 MG PO
[2016-05-27 00:05] LABS: POC - CKMB 1.1 ng/mL (0.0-7.9); POC - TROPONIN <0.05 ng/mL (<=0.05)
[2016-05-27 03:51] LABS: AMPHETAMINE NEG (NEG); BARBITURATES NEG (NEG); BENZODIAZEPINES NEG (NEG); COCAINE NEG (NEG); MARIJUANA NEG (NEG); OPIATES NEG (NEG); TRICYCLIC ANTIDEPRESSANTS NEG (NEG); U METHADONE NEG (NEG)
[2016-05-27 07:33] LABS: BASOPHIL# 0.1 X10e3 (0-0.3); BASOPHIL% 1.5 % (0-2.5); EOSINOPHIL% 0.6 % (0.0-7.0); HEMATOCRIT 47.5 % (35.0-45.0); HEMOGLOBIN 14.9 gm/dL (12.0-16.0); LYMPHOCYTE# 0.7 X10e3 (1.0-3.5); LYMPHOCYTE% 19.2 % (17.0-45.0); MEAN CELL VOLUME 99.4 FL (83-96); MEAN CORPUSCULAR HEMOGLOBIN 31.3 PG (28-34); MEAN CORPUSCULAR HGB CONC 31.5 g/dL (30-36); MONOCYTE# 0.3 X10e3 (0-1.0); MONOCYTE% 7.3 % (3.0-12.0); NEUTROPHIL# 2.6 X10e3 (1.5-7.1); NEUTROPHIL% 71.4 % (40-75); PLATELET COUNT 163 X10e3 (140-420); RED BLOOD COUNT 4.78 X10e (3.90-5.30); RED CELL DISTRIBUTION WIDTH 15.3 % (11.0-15.5); WHITE BLOOD COUNT 3.6 X10e3 (4.0-10.5)
[2016-05-27 08:01] LABS: DIFF IND NO
[2016-05-27 08:04] LABS: CALCIUM SERUM 8.4 mg/dL (8.4-10.2); CREATININE SERUM 0.8 mg/dL (0.6-1.4); GLOM FILT RATE Estimated 91.7 mL/min (>60)
[2016-05-27 08:24] LABS: %MB 1.4 % (0.0-4.0); MB 2.7 ng/ml
[2016-05-27 08:54] LABS: THYROID STIMULATING HORMONE 1.41 uIU/ml (0.34-5.60)
[2016-05-27 09:01] LABS: FREE THYROXIN (T4) 0.97 ng/dL (0.58-1.64)
[2016-05-27 16:41] LABS: %MB 1.2 % (0.0-4.0); MB 1.9 ng/ml
[2016-05-27 23:47] LABS: %MB 1.2 % (0.0-4.0); MB 1.9 ng/ml
[2016-05-28 04:34] LABS: HEMATOCRIT 45.2 % (35.0-45.0); HEMOGLOBIN 14.3 gm/dL (12.0-16.0); MEAN CELL VOLUME 99.6 FL (83-96); MEAN CORPUSCULAR HEMOGLOBIN 31.6 PG (28-34); MEAN CORPUSCULAR HGB CONC 31.8 g/dL (30-36); MEAN PLATELET VOLUME 8.2 FL (6.5-11.5); RED BLOOD COUNT 4.53 X10e (3.90-5.30); RED CELL DISTRIBUTION WIDTH 15.1 % (11.0-15.5); WHITE BLOOD COUNT 2.7 X10e3 (4.0-10.5)
[2016-05-28 09:54] LABS: BUN/CREATININE RATIO 16.66; CREATININE SERUM 0.6 mg/dL (0.6-1.4); GLOM FILT RATE Estimated 113.2 mL/min (>60); POTASSIUM 3.9 mmol/L (3.5-5.1)
[2016-05-28 09:55] LABS: CALCIUM SERUM 8.3 mg/dL (8.4-10.2)
[2016-05-28 10:13] LABS: %MB 1.3 % (0.0-4.0); MB 1.9 ng/ml
[2016-05-31] MEDS ORDERED: SYMBICORT INH (12:57)
[2016-05-31] MEDS ORDERED: HUMIBID-LA600 MG PO (12:58)
[2016-05-31] MEDS ORDERED: ACETAMINOPHEN650 M1 PO (12:58)
[2016-05-31] MEDS ORDERED: SILDENAFIL20 MG PO (13:00)
[2016-05-31] MEDS ORDERED: DOXYCYCLINE HY100 M3 PO (13:00)
[2016-05-31] MEDS ORDERED: MEDROL DOSEPAK4 MG PO (13:01)
== END 2016-05-31 13:30 | disposition home or self-care (01) | DRG 189 ==
LOC: CED 23:29 → CEDOF 05-27 02:30 → C3A PCU 05-27 03:47
PROVIDERS: Emergency Medicine; Internal Medicine
DX: J96.01 Acute respiratory failure with hypoxia (principal); I27.2 Other secondary pulmonary hypertension; I50.32 Chronic diastolic (congestive) heart failure; I11.0 Hypertensive heart disease with heart failure; J44.0 Chronic obstructive pulmonary disease with (acute) lower respiratory infection; J44.1 Chronic obstructive pulmonary disease with (acute) exacerbation; R00.0 Tachycardia, unspecified; J84.10 Pulmonary fibrosis, unspecified; G47.33 Obstructive sleep apnea (adult) (pediatric); R07.89 Other chest pain; F17.210 Nicotine dependence, cigarettes, uncomplicated; Z79.82 Long term (current) use of aspirin; Z71.6 Tobacco abuse counseling; J20.9 Acute bronchitis, unspecified
CPT/HCPCS: 36415; 71010; 71275; 80048; 80076; 80307; 82550; 82553; 83880; 84439; 84443; 84484; 85025; 85027; 85379; 85610; 85730; 93005; 93970; 94640; 94760; 99285; J1650; J2930; Q9967